=== PATIENT | female | born 1980 | race African-American/Black ===

== ENCOUNTER 2025-06-03 11:04 | Emergency (ER) | payer MEDICAID ==
[~2025-06-03] VITALS: Ht 175.3 cm; Wt 72.6 kg
[2025-06-03] MEDS: ACETAMINOPHEN 325 MG TABLET PO ONE (11:30)
[2025-06-03] MEDS ORDERED: ACETAMINOPHEN 325 MG TABLET ONE (13:05)
[2025-06-03 13:16] VITALS: BP 115/75; TEMP 98.5; O2SAT 98
== END 2025-06-03 14:16 | disposition home or self-care (01) ==
LOC: ER 11:07
DX: F10.129 Alcohol abuse with intoxication, unspecified (principal); G89.29 Other chronic pain; I10 Essential (primary) hypertension; M25.511 Pain in right shoulder; Z60.2 Problems related to living alone; Y90.9 Presence of alcohol in blood, level not specified
CPT/HCPCS: 73030-TC

== ENCOUNTER 2025-09-13 19:58 | Emergency (ER) | payer MEDICAID ==
[~2025-09-13] VITALS: Ht 167.6 cm; Wt 72.6 kg
[2025-09-13 20:08] VITALS: TEMP 98
[2025-09-13] MEDS ORDERED: ONDANSETRON HCL/PF 4 MG/2 ML VIAL ONE (20:26)
[2025-09-13] MEDS: IV NS 0.9% 1,000 ML BAG IV ONE (20:40)
[2025-09-13] MEDS: ONDANSETRON HCL/PF - ER 4 MG/2 ML VIAL IV ONE (20:40)
[2025-09-13 20:52] LABS: PLATELET COUNT (AUTO) 75 K/uL (150-450); RED BLOOD CELL COUNT(AUTO) 3.31 MIL/uL (4.0-5.2); RED CELL DISTRIBUTION WIDTH 16.1 % (11.5-15.0)
[2025-09-13 20:53] LABS: CALCIUM, SERUM 8.2 mg/dL (8.5-10.1); CREATININE 0.8 mg/dL (0.6-1.3); SODIUM SERUM 146.0 mmol/L (136-145); UREA NITROGEN, BLOOD 6.0 mg/dL (7-18); WHITE BLOOD COUNT (AUTO) 1.6 K/uL (4.3-11.0)
[2025-09-13 21:01] LABS: ALCOHOL, BLOOD 324.0 mg/dL (0-10); ASPARTATE AMINOTRANSFERASE 376.0 U/L (15-37); TOTAL PROTEIN, SERUM 7.8 g/dL (6.4-8.2)
[2025-09-13 21:13] LABS: AMPHETAMINE, URINE NEGATIVE (NEGATIVE); BARBITURATE, URINE NEGATIVE (NEGATIVE); BENZODIAZEPINE, URINE NEGATIVE (NEGATIVE); COCCAINE, URINE NEGATIVE (NEGATIVE); OPIATE, URINE NEGATIVE (NEGATIVE)
[2025-09-13 21:14] LABS: CANNABINOID, URINE POSITIVE (NEGATIVE)
[2025-09-13 21:52] LABS: LYMPHOCYTES % (MANUAL) 21 % (16-48); MONOCYTES % (MANUAL) 3 % (0-11.0); NEUTROPHILS % (MANUAL) 26 (42-76); PLATELET ESTIMATE DECREASED
[2025-09-13 22:51] VITALS: BP 130/79; O2SAT 98
[2025-09-13] MEDS: POTASSIUM CL. PREMIX PERIPHER. 50 ML IV SCH (23:00)
[2025-09-13] MEDS ORDERED: POTASSIUM CL. PREMIX PERIPHER. 100 ML ONE (23:14)
[2025-09-14] MEDS ORDERED: MECL-159 PO (05:19)
[2025-09-14] MEDS ORDERED: AMLO-213 PO (05:19)
== END 2025-09-13 23:39 | disposition left against medical advice (07) ==
LOC: ER 20:02
DX: F10.129 Alcohol abuse with intoxication, unspecified (principal); R42 Dizziness and giddiness; R11.2 Nausea with vomiting, unspecified; I10 Essential (primary) hypertension; E87.6 Hypokalemia; D70.9 Neutropenia, unspecified; Y90.9 Presence of alcohol in blood, level not specified; Z79.899 Other long term (current) drug therapy
CPT/HCPCS: 99285; 96374; 96361; 93005; 70450; 85027; 83690; 83735; 85007; 36415; 80053; 84484; 80320; 80307; J2405; J7030; A4223; G0480; J3480; J7040

== ENCOUNTER 2025-09-14 01:27 | Emergency (ER) | payer MEDICAID ==
[~2025-09-14] VITALS: Ht 172.7 cm; Wt 63.5 kg
[2025-09-14] MEDS ORDERED: hydrALAZINE HCL IV 20 MG VIAL ONE (03:59)
[2025-09-14] MEDS: IV NS 0.9% 1,000 ML BAG IV ONE (04:20)
[2025-09-14] MEDS: hydrALAZINE HCL IV 20 MG VIAL IV ONE (04:20)
[2025-09-14] MEDS ORDERED: MECLIZINE HCL 25 MG TABLET ONE (04:25)
[2025-09-14] MEDS: MECLIZINE HCL 25 MG TABLET PO ONE (04:29)
[2025-09-14] MEDS ORDERED: MECL-159 PO (05:19)
[2025-09-14] MEDS ORDERED: AMLO-213 PO (05:19)
[2025-09-14] MEDS ORDERED: AMLODIPINE BESYLATE 10 MG TABLET ONE (05:20)
[2025-09-14] MEDS: AMLODIPINE BESYLATE 5 MG TABLET PO ONE (05:21)
[2025-09-14 06:00] VITALS: BP 142/89; TEMP 98.2; O2SAT 98
== END 2025-09-14 06:01 | disposition home or self-care (01) ==
LOC: ER 01:42
DX: I10 Essential (primary) hypertension (principal); Z59.71 Insufficient health insurance coverage; Z60.2 Problems related to living alone
CPT/HCPCS: 99283; 96374; 96361; J8597; J0360; J7030